=== PATIENT | female | born 2000 | race Caucasian/White ===

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

== ENCOUNTER 2019-04-15 22:36 | Emergency (ER) | payer OTHER ==
[~2019-04-15] VITALS: Ht 170.2 cm; Wt 73.9 kg
[2019-04-15 22:42] VITALS: Ht 170.2 cm; Wt 73.9 kg
[2019-04-16 00:20] VITALS: BP 100/55
== END 2019-04-16 00:54 | disposition home or self-care (01) ==
LOC: ED 22:36
DX: T19.2XXA Foreign body in vulva and vagina, initial encounter (principal); K21.9 Gastro-esophageal reflux disease without esophagitis; X58.XXXA Exposure to other specified factors, initial encounter; Y93.89 Activity, other specified; Y92.89 Other specified places as the place of occurrence of the external cause; Y99.8 Other external cause status